=== PATIENT | male | born 1960 | race Caucasian/White ===

== ENCOUNTER 2019-01-15 09:58 | Inpatient (IN) | payer MEDICAID, OTHER ==
[~2019-01-15] VITALS: Ht 172.7 cm; Wt 63.0 kg
[2019-01-15 11:49] LABS: BASOPHILS # (AUTO) 0.1 X10'3 (0-0.2); BASOPHILS % (AUTO) 0.2 % (0-1); EOSINOPHILS % (AUTO) 0.1 % (0-6); HEMATOCRIT 46.4 % (42.0-52.0); HEMOGLOBIN 15.7 g/dl (14.0-17.9); LYMPHOCYTES # (AUTO) 1.2 X10'3 (1.1-4.8); LYMPHOCYTES % (AUTO) 3.8 % (21-51); MEAN CORPUSCULAR HEMOGLOBIN 31.6 PG (27.0-31.0); MEAN CORPUSCULAR HGB CONC 33.8 g/dL (33.0-36.5); MEAN CORPUSCULAR VOLUME 93.4 FL (78-98); MEAN PLATELET VOLUME 11.1 FL (7.4-10.4); MONOCYTES # (AUTO) 4.2 X10'3 (0-0.9); MONOCYTES % (AUTO) 13.1 % (2-12); NEUTROPHILS # (AUTO) 26.5 X10'3 (1.8-7.7); NEUTROPHILS % (AUTO) 82.8 % (42-75); PLATELET COUNT 208 X10'3 (140-440); RED BLOOD COUNT 4.97 X10'6 (4.70-6.10); RED CELL DISTRIBUTION WIDTH 13.7 % (11.5-14.5)
[2019-01-15 12:01] LABS: ALANINE AMINOTRANSFERASE 107 U/L (12-78); ALBUMIN 4.1 G/DL (3.4-5.0); ALKALINE PHOSPHATASE 79 IU/L (46-116); ANION GAP 17 (8-16); ASPARTATE AMINO TRANSFERASE 161 U/L (10-37); BILIRUBIN,TOTAL 1.2 MG/DL (0.1-1.0); BLOOD UREA NITROGEN 115 MG/DL (7-18); CALCIUM 8.3 MG/DL (8.5-10.1); CHLORIDE 89 MMOL/L (99-107); CREATININE 2.95 MG/DL (0.60-1.10); GLUCOSE 76 MG/DL (70-104); POTASSIUM 4.8 MMOL/L (3.5-5.1); SODIUM 127 MMOL/L (135-145); TOTAL CARBON DIOXIDE 20.9 MMOL/L (24-32); TOTAL PROTEIN 8.1 G/DL (6.4-8.2); eGFR 22 ML/MIN
[2019-01-15 12:27] LABS: PARTIAL THROMBOPLASTIN TIME 36 SECONDS (22-32)
[2019-01-15] MEDS ORDERED: normal saline 1000ML IV soln IV ONE (12:40)
[2019-01-15] MEDS ORDERED: vancomycin/NS 1 GM ADD-VANTAGE 250 ML IV ONE (12:50)
[2019-01-15] MEDS ORDERED: CefTRIAXone 2gm/D5W 50ml 50 ML IV ONE (12:50)
[2019-01-15 13:09] LABS: PLATELET ESTIMATE NORMAL; TOTAL CELLS COUNTED 100; TOXIC GRANULATION 2+
[2019-01-15 13:10] LABS: TOXIC VACUOLATION 2+
[2019-01-15] MEDS ORDERED: LIDOcaine 1% 30ml preserv. free vial IJ STA (13:20)
[2019-01-15 13:27] LABS: CLARITY,URINE SLIGHTLY CLOUDY (Clear); GLUCOSE, URINE NEGATIVE (Neg); KETONES,URINE 15 mg/dl (Neg); LEUKOCYTE ESTERASE ,URINE NEGATIVE (Neg); NITRITES, URINE NEGATIVE (Neg); OCCULT BLOOD,URINE LARGE (Neg); PH,URINE 5.5 (4.8-8.0); PROTEIN,URINE 30 mg/dl (Neg); UROBILINOGEN,URINE 0.2 E.U/dL (0.2-1.0)
[2019-01-15 13:29] LABS: COLOR,URINE DARK YELLOW (Yellow); UA COLLECTION TYPE URINAL
[2019-01-15 13:35] LABS: BACTERIA,URINE FEW /HPF (Neg); RBC,URINE 0-2 /HPF (0-2); SQUAMOUS EPITHELIAL CELL,UR FEW /LPF (FEW); WBC,URINE 0-4 /HPF (0-4)
[2019-01-15 13:36] LABS: ACETAMINOPHEN < 2.0 UG/ML (10-30); ETHANOL < 0.010 GM/DL (0.0-0.010)
--- NOTE | 2019-01-15 14:00 | NUR ---
Spinal tap in process by Dr. Live. Addendum: 01/15/19 at 1413 by ROSENDO MD Maria T at bedside to discuss lumbar tap with pt and witnessed by this nurse. Pt unable to verbalize consent or sign waiver at this time. Pt dandre procedure well and follows verbal commands.
[2019-01-15 14:18] LABS: CREATINE KINASE 1461 U/L (39-308)
[2019-01-15 14:26] LABS: URINE AMPHETAMINE SCREEN POSITIVE (Neg); URINE BARBITUATE SCREEN NEGATIVE (Neg); URINE BENZODIAZEPINES SCREEN NEGATIVE (Neg); URINE CANNABINOID SCREEN NEGATIVE (Neg); URINE COCAINE SCREEN NEGATIVE (Neg); URINE METHADONE SCREEN NEGATIVE (Neg); URINE OPIATE SCREEN NEGATIVE (Neg); URINE PHENCYCLIDINE SCREEN NEGATIVE (Neg)
[2019-01-15] MEDS ORDERED: NO HOME MEDS (14:44)
[2019-01-15 14:51] LABS: GLUCOSE,CSF 50 MG/DL (40-75); TOTAL PROTEIN,CSF 54 MG/DL (15-45)
[2019-01-15] MEDS ORDERED: ipratropium/albuterol 3ml nebule NEB PRN (14:55)
[2019-01-15] MEDS ORDERED: morphine 2 MG/ML inj. syringe IV PRN ×2 (14:55)
[2019-01-15] MEDS ORDERED: magnesium 4gm in 100ml NS 100 ML IV PRN (14:55)
[2019-01-15] MEDS ORDERED: docusate sod 100mg capsule PO PRN (14:55)
[2019-01-15] MEDS ORDERED: ondansetron/PF 4mg/2ml inj IV PRN (14:55)
[2019-01-15] MEDS ORDERED: acetaminophen 325mg tablet PO PRN (14:55)
[2019-01-15] MEDS ORDERED: magnesium 2GM in 50ml NS 50 ML IV PRN (14:55)
[2019-01-15] MEDS ORDERED: mag hydrox/Alum hydrox/simeth 30ml oral suspension PO PRN (14:55)
[2019-01-15] MEDS ORDERED: magnesium Cl slow-release 64mg tablet PO PRN (14:55)
[2019-01-15] MEDS ORDERED: potassium CL 10mEq/100ml bag 100 ML IV PRN ×2 (14:55)
[2019-01-15] MEDS ORDERED: potassium Cl 20 mEq SR tablet PO PRN ×2 (14:55)
[2019-01-15 15:06] LABS: APPEARANCE,CSF CLEAR; CSF RBC 0 /CU MM (0); CSF SUPERNATANT COLOR COLORLESS; CSF VOLUME 6 ML; TUBE# COUNTED 4
[2019-01-15 15:07] LABS: APPEARANCE,CSF CLEAR; CSF RBC 1 /CU MM (0); CSF SUPERNATANT COLOR COLORLESS; CSF VOLUME 6 ML; TUBE# COUNTED 1
[2019-01-15 15:09] LABS: CSF WBC CT 3 /CU MM (0-5); CSF WBC CT 4 /CU MM (0-5)
--- NOTE | 2019-01-15 15:09 | NUR ---
CFS RESULTS RECEIVED FROM TK IN LAB WBC @1 = 3 wbc #4=4 TOTAL PROTEIN [address] MANN NOTIFYED
[2019-01-15] MEDS ORDERED: haloperidol 5mg tablet PO PRN (15:30)
[2019-01-15] MEDS ORDERED: LORazepam 2 mg/ml vial IV PRN (15:30)
[2019-01-15] MEDS ORDERED: LORazepam 1 MG tablet PO PRN (15:30)
[2019-01-15] MEDS ORDERED: haloperidol lactate 5mg/ml inj IM PRN (15:30)
[2019-01-15 15:36] LABS: BASOPHILS # (AUTO) 0.1 X10'3 (0-0.2); BASOPHILS % (AUTO) 0.3 % (0-1); EOSINOPHILS % (AUTO) 0 % (0-6); HEMATOCRIT 44.7 % (42.0-52.0); HEMOGLOBIN 15.1 g/dl (14.0-17.9); LYMPHOCYTES # (AUTO) 1.3 X10'3 (1.1-4.8); LYMPHOCYTES % (AUTO) 4.8 % (21-51); MEAN CORPUSCULAR HEMOGLOBIN 31.9 PG (27.0-31.0); MEAN CORPUSCULAR HGB CONC 33.8 g/dL (33.0-36.5); MEAN CORPUSCULAR VOLUME 94.5 FL (78-98); MONOCYTES % (AUTO) 11.7 % (2-12); NEUTROPHILS # (AUTO) 21.5 X10'3 (1.8-7.7); NEUTROPHILS % (AUTO) 83.2 % (42-75); PLATELET COUNT 156 X10'3 (140-440); RED BLOOD COUNT 4.73 X10'6 (4.70-6.10); RED CELL DISTRIBUTION WIDTH 13.5 % (11.5-14.5)
[2019-01-15 15:42] LABS: WHITE BLOOD COUNT 25.9 X10'3 (4.5-11.0)
[2019-01-15 15:49] LABS: ALANINE AMINOTRANSFERASE 85 U/L (12-78); ALBUMIN 3.4 G/DL (3.4-5.0); ALKALINE PHOSPHATASE 69 IU/L (46-116); ANION GAP 15 (8-16); ASPARTATE AMINO TRANSFERASE 126 U/L (10-37); BILIRUBIN,TOTAL 0.7 MG/DL (0.1-1.0); BLOOD UREA NITROGEN 99 MG/DL (7-18); BUN/CREATININE RATIO 41.1 (5.4-32.0); CALCIUM 7.6 MG/DL (8.5-10.1); CHLORIDE 98 MMOL/L (99-107); CREATININE 2.41 MG/DL (0.60-1.10); GLUCOSE 72 MG/DL (70-104); POTASSIUM 4.5 MMOL/L (3.5-5.1); SODIUM 131 MMOL/L (135-145); TOTAL PROTEIN 6.9 G/DL (6.4-8.2); eGFR 28 ML/MIN
[2019-01-15] MEDS: normal saline 1000ml 1,000 ML IV SCH (16:12)
[2019-01-15 16:44] LABS: TOTAL CELLS COUNTED 100
[2019-01-15 16:45] LABS: PLATELET ESTIMATE NORMAL; TOXIC GRANULATION 2+
[2019-01-15 16:46] LABS: TOXIC VACUOLATION 2+
[2019-01-15] MEDS: nicotine 21mg patch - 24 hr TD SCH (17:52)
[2019-01-15 21:30] VITALS: BP 125/102
--- NOTE | 2019-01-15 21:30 | NUR ---
Recieved report from Tabitha BARRY in the ED. Pt transferred to the Ortho floor via [facility], Pt was able to ambulate to to the bed from the gurney, however his gait was unsteady. Pt is alert and oriented, his speech seems slurred, but could be the result of poor dentition.
[2019-01-16] MEDS: normal saline 1000ml 1,000 ML IV SCH ×4 (00:23→14:56)
[2019-01-16] MEDS: loperamide 2mg capsule PO PRN (00:23)
[2019-01-16 06:10] VITALS: BP 95/50
[2019-01-16 06:15] LABS: BASOPHILS % (AUTO) 0.2 % (0-1); EOSINOPHILS % (AUTO) 0.1 % (0-6); HEMATOCRIT 41.9 % (42.0-52.0); HEMOGLOBIN 14.1 g/dl (14.0-17.9); LYMPHOCYTES % (AUTO) 5.8 % (21-51); MEAN CORPUSCULAR HEMOGLOBIN 31.6 PG (27.0-31.0); MEAN CORPUSCULAR HGB CONC 33.8 g/dL (33.0-36.5); MEAN CORPUSCULAR VOLUME 93.6 FL (78-98); MEAN PLATELET VOLUME 11.3 FL (7.4-10.4); MONOCYTES % (AUTO) 11.8 % (2-12); NEUTROPHILS % (AUTO) 82.1 % (42-75); PLATELET COUNT 147 X10'3 (140-440); RED BLOOD COUNT 4.47 X10'6 (4.70-6.10); RED CELL DISTRIBUTION WIDTH 13.8 % (11.5-14.5)
--- NOTE | 2019-01-16 06:27 | NUR ---
Patient in room ORTHO 4021. I have received report from Manas BARRY and had the opportunity to ask questions and assume patient care.
[2019-01-16 06:39] LABS: ALANINE AMINOTRANSFERASE 75 U/L (12-78); ALBUMIN/GLOBULIN RATIO 0.9 (1.1-1.5); ALKALINE PHOSPHATASE 61 IU/L (46-116); ANION GAP 10 (8-16); ASPARTATE AMINO TRANSFERASE 77 U/L (10-37); BILIRUBIN,TOTAL 0.6 MG/DL (0.1-1.0); BLOOD UREA NITROGEN 56 MG/DL (7-18); BUN/CREATININE RATIO 36.8 (5.4-32.0); CALCIUM 7.4 MG/DL (8.5-10.1); CHLORIDE 105 MMOL/L (99-107); CREATININE 1.52 MG/DL (0.60-1.10); GLUCOSE 69 MG/DL (70-104); MAGNESIUM 2.5 MG/DL (1.5-2.4); SODIUM 138 MMOL/L (135-145); TOTAL PROTEIN 6.3 G/DL (6.4-8.2); eGFR 47 ML/MIN
[2019-01-16] MEDS: CefTRIAXone/D5W-Rocephin 1gm 50 ML IV SCH (07:14)
[2019-01-16] MEDS: multivitamins, therapeutics tablet PO SCH (07:15)
[2019-01-16] MEDS: folic acid 1mg tablet PO SCH (07:17)
[2019-01-16] MEDS: enoxaparin 30mg/0.3ml syringe SQ SCH (07:18)
[2019-01-16] MEDS: thiamine 100mg tablet PO SCH (07:18)
[2019-01-16] MEDS: K and/or MAG REPLACEMENT MC SCH (08:00)
[2019-01-16] MEDS: nicotine 21mg patch - 24 hr TD SCH (08:00)
[2019-01-16 08:39] LABS: TOTAL CELLS COUNTED 100
[2019-01-16 08:41] LABS: LARGE PLATELETS FEW; PLATELET ESTIMATE NORMAL
[2019-01-16 08:43] LABS: TOXIC GRANULATION 1+; TOXIC VACUOLATION 1+
[2019-01-16 10:00] VITALS: BP 124/63
[2019-01-16] MEDS ORDERED: vancomycin/NS 1 GM ADD-VANTAGE 250 ML IV SCH (14:00)
[2019-01-16 18:00] VITALS: BP 102/57
--- NOTE | 2019-01-16 18:12 | NUR ---
Patient report given to Manas BARRY
--- NOTE | 2019-01-16 19:00 | NUR ---
Patient in room ORTHO 4021. I have received report from Luiza Glynn RN and had the opportunity to ask questions and assume patient care.
[2019-01-16] MEDS: lactobacillus rhamnosus 10,000 MMU CELLS/CAPSULE PO SCH (20:00)
[2019-01-16 22:00] VITALS: BP 112/63
[2019-01-17] MEDS: normal saline 1000ml 1,000 ML IV SCH ×3 (00:07→16:41)
[2019-01-17 06:10] VITALS: BP 90/45
--- NOTE | 2019-01-17 06:36 | NUR ---
Patient in room ORTHO 4021. I have received report from Manas BARRY and had the opportunity to ask questions and assume patient care.
[2019-01-17 07:04] LABS: BASOPHILS % (AUTO) 0.3 % (0-1); EOSINOPHILS # (AUTO) 0.2 X10'3 (0-0.9); EOSINOPHILS % (AUTO) 1.6 % (0-6); HEMATOCRIT 38.4 % (42.0-52.0); HEMOGLOBIN 13.1 g/dl (14.0-17.9); LYMPHOCYTES # (AUTO) 1.2 X10'3 (1.1-4.8); LYMPHOCYTES % (AUTO) 11.7 % (21-51); MEAN CORPUSCULAR HEMOGLOBIN 32.4 PG (27.0-31.0); MEAN CORPUSCULAR HGB CONC 34.1 g/dL (33.0-36.5); MEAN PLATELET VOLUME 11.3 FL (7.4-10.4); MONOCYTES # (AUTO) 1.7 X10'3 (0-0.9); MONOCYTES % (AUTO) 15.7 % (2-12); NEUTROPHILS # (AUTO) 7.5 X10'3 (1.8-7.7); NEUTROPHILS % (AUTO) 70.7 % (42-75); PLATELET COUNT 107 X10'3 (140-440); RED BLOOD COUNT 4.04 X10'6 (4.70-6.10); RED CELL DISTRIBUTION WIDTH 13.7 % (11.5-14.5); WHITE BLOOD COUNT 10.6 X10'3 (4.5-11.0)
[2019-01-17 07:16] LABS: ALANINE AMINOTRANSFERASE 52 U/L (12-78); ALBUMIN 2.3 G/DL (3.4-5.0); ALBUMIN/GLOBULIN RATIO 0.8 (1.1-1.5); ALKALINE PHOSPHATASE 65 IU/L (46-116); ANION GAP 6 (8-16); ASPARTATE AMINO TRANSFERASE 43 U/L (10-37); BILIRUBIN,TOTAL 0.4 MG/DL (0.1-1.0); BLOOD UREA NITROGEN 23 MG/DL (7-18); BUN/CREATININE RATIO 23.2 (5.4-32.0); CALCIUM 7.5 MG/DL (8.5-10.1); CHLORIDE 110 MMOL/L (99-107); CREATININE 0.99 MG/DL (0.60-1.10); GLUCOSE 82 MG/DL (70-104); PHOSPHORUS 1.4 MG/DL (2.3-4.5); POTASSIUM 3.8 MMOL/L (3.5-5.1); SODIUM 139 MMOL/L (135-145); TOTAL PROTEIN 5.2 G/DL (6.4-8.2); eGFR 77 ML/MIN
[2019-01-17] MEDS: nicotine 21mg patch - 24 hr TD SCH (08:00)
[2019-01-17] MEDS: K and/or MAG REPLACEMENT MC SCH (08:00)
[2019-01-17] MEDS: CefTRIAXone/D5W-Rocephin 1gm 50 ML IV SCH (08:38)
[2019-01-17] MEDS: lactobacillus rhamnosus 10,000 MMU CELLS/CAPSULE PO SCH ×2 (08:38→19:30)
[2019-01-17] MEDS: folic acid 1mg tablet PO SCH (08:38)
[2019-01-17] MEDS: multivitamins, therapeutics tablet PO SCH (08:38)
[2019-01-17] MEDS: thiamine 100mg tablet PO SCH (08:38)
[2019-01-17] MEDS: enoxaparin 30mg/0.3ml syringe SQ SCH (08:39)
[2019-01-17 09:19] LABS: CREATINE KINASE 188 U/L (39-308)
[2019-01-17 10:00] VITALS: BP 93/53
[2019-01-17] MEDS ORDERED: vancomycin/NS 1 GM ADD-VANTAGE 250 ML IV SCH (12:00)
[2019-01-17] MEDS ORDERED: LIDOcaine Viscous 15ml cup MM PRN (12:30)
[2019-01-17] MEDS: loperamide 2mg capsule PO PRN (14:01)
[2019-01-17 16:25] LABS: C DIFF ANTIGEN NEGATIVE (NEGATIVE); C DIFF SPECIMEN=DIARRHEA? ACCEPTABLE; C DIFFICILE TOXINS A&B NEGATIVE (Neg)
[2019-01-17 17:00] VITALS: BP 109/70
[2019-01-17] MEDS ORDERED: loperamide 2mg capsule PO PRN (17:35)
--- NOTE | 2019-01-17 18:44 | NUR ---
Patient report given to Venessa BARRY
--- NOTE | 2019-01-17 21:35 | NUR ---
Patient verbalized that he would like to leave AMA with sister back to [facility]. Discussed patient's wishes with MD Kendra. unable to come up and talk to patient at this time, but stated "he may leave if the patient is alert and oriented and is aware of all consequences involved" Patient verbalized understanding of all the consequences involved in leaving AMA. Stated that he is leaving so that he can get checked into a hospital in [place] compliant with his insurance. IV taken out. All belongings taken with patient. Walked out of unit with his sister with a steady gait.
[2019-01-18] MEDS ORDERED: VANCOMYCIN LEVEL IV ONE ×2 (13:30→23:30)
[2019-01-19 13:10] LABS: HSV 1 PCR Negative (Negative); HSV 2 PCR Negative (Negative)
[2019-01-21 12:06] LABS: LYME IGG P23 AB Absent (.); LYME IGG P28 AB Absent (.); LYME IGG P30 AB Absent (.); LYME IGG P41 AB Absent (.); LYME IGG P45 AB Absent (.); LYME IGG P58 AB Absent (.); LYME IGG P66 AB Absent (.); LYME IGG P93 AB Absent (.); LYME IGG WB INTERP Negative (.); LYME IGM P23 AB Absent (.); LYME IGM P39 AB Absent (.); LYME IGM P41 AB Absent (.); LYME IGM WB INTERP Negative (.); VDRL, CSF Non Reactive (Non Rea:<1:1)
== END 2019-01-17 21:35 | disposition left against medical advice (07) | DRG 57 ==
LOC: ER 09:59 → ORTHO 4S 15:07
PROVIDERS: ADMIT Family Medicine; ATTEND Family Medicine
PROC: 009U3ZZ Drainage of Spinal Canal, Percutaneous Approach (ICD-10-PCS; principal; 2019-01-15)
DX: S06.9X0A Unspecified intracranial injury without loss of consciousness, initial encounter (principal); N17.0 Acute kidney failure with tubular necrosis; G92 Toxic encephalopathy; K52.1 Toxic gastroenteritis and colitis; E87.1 Hypo-osmolality and hyponatremia; F15.90 Other stimulant use, unspecified, uncomplicated; Y08.89XA Assault by other specified means, initial encounter; Y92.89 Other specified places as the place of occurrence of the external cause; F17.210 Nicotine dependence, cigarettes, uncomplicated; Z53.21 Procedure and treatment not carried out due to patient leaving prior to being seen by health care provider; J44.9 Chronic obstructive pulmonary disease, unspecified; Y93.89 Activity, other specified; Y99.8 Other external cause status; Z71.6 Tobacco abuse counseling; T36.1X5A Adverse effect of cephalosporins and other beta-lactam antibiotics, initial encounter; Y92.238 Other place in hospital as the place of occurrence of the external cause
CPT/HCPCS: 36415; 62270; 70450; 71045; 80053; 80305; 80320; 80329; 81001; 82140; 82550; 82945; 83605; 83735; 84100; 84145; 84157; 84443; 84484; 85025; 85610; 85730; 86592; 86617; 87015; 87040; 87045; 87046; 87070; 87081; 87324; 87449; 87529; 89051; 92508; 92616; 93005; 93306; 94760; 96365; 96367; 97116; 97161; 97530; 99285; G0378; J0696; J1650; J2001; J3370; J7030